=== PATIENT | male | born 1935 | race Caucasian/White ===

== ENCOUNTER → 2016-08-21 | Outpatient (CLI) | payer OTHER, BC ==
[2016-08-21 10:57] LABS: BASOPHILS # (AUTO) 0.01 10*3/UL; BASOPHILS % (AUTO) 0.2 % (0-1); EOSINOPHILS % (AUTO) 3.2 % (0-8); HEMATOCRIT 46.9 % (42.0-52.0); HEMOGLOBIN 15.8 g/dL (14.0-18.0); IMM GRAN % (AUTO) 0.2 % (0-5); IMM GRAN# (AUTO) 0.01 10*3/UL; LYMPHOCYTES # (AUTO) 1.08 10*3/uL; LYMPHOCYTES % (AUTO) 21.6 % (10-50); MEAN CORPUSCULAR HGB CONC 33.7 g/dL (33-37); MEAN PLATELET VOLUME 11.5 FL (7.4-12.2); MONOCYTES # (AUTO) 0.41 10*3/UL (0.3-0.8); MONOCYTES % (AUTO) 8.2 % (5-15); NEUTROPHILS # (AUTO) 3.33 10*3/UL; NEUTROPHILS % (AUTO) 66.6 % (50-80); RDW COEFFICIENT OF VARIATION 12.9 % (11.5-14.5); RED BLOOD COUNT 4.93 10^6/uL (4.70-6.10)
[2016-08-21 10:58] LABS: PLATELET MORPHOLOGY COMMENT NORMAL MORPHOLOGY (NORM)
[2016-08-21 11:04] LABS: BILIRUBIN,TOTAL 0.7 mg/dL (0.3-1.2); CALCIUM 9.2 mg/dL (8.7-10.7); LDL CHOLESTEROL,CALCULATED 29.4 mg/dL; POTASSIUM 4.9 meq/L (3.8-5.2)
[2016-08-21 11:07] LABS: HEMOGLOBIN A1C 6.21 % (4.2-6.0); MEAN BLOOD GLUCOSE (CALC) 120.793 mg/dL
[2016-08-21 11:10] LABS: CREATININE, URINE 150.2 MG/DL (15-500)
== END ==
LOC: MOB LAB 09:17
PROVIDERS: ATTEND Internal Medicine
DX: E11.9 Type 2 diabetes mellitus without complications (principal); E78.5 Hyperlipidemia, unspecified; I10 Essential (primary) hypertension; I25.10 Atherosclerotic heart disease of native coronary artery without angina pectoris
CPT/HCPCS: 36415; 80053; 80061; 82043; 82550; 83036; 85025

== ENCOUNTER → 2016-08-28 | Outpatient (CLI) | payer OTHER, BC | LOC: MMPC 11:11 | PROVIDERS: ATTEND Internal Medicine | DX: I71.4 Abdominal aortic aneurysm, without rupture (principal); E11.9 Type 2 diabetes mellitus without complications; I25.10 Atherosclerotic heart disease of native coronary artery without angina pectoris; E78.5 Hyperlipidemia, unspecified; I35.0 Nonrheumatic aortic (valve) stenosis; Z95.1 Presence of aortocoronary bypass graft | CPT/HCPCS: 99214; G0463 ==

== ENCOUNTER → 2016-08-29 | Outpatient (CLI) | payer OTHER, BC ==
--- NOTE | 2016-08-29 13:18 | EKG ---
[address] [place] [address] Measurements Intervals [place] Rate: 64 P: 62 MD: 214 QRS: -48 QRSD: 109 T: 52 QT: 378 QTc: 388 Interpretive Statements SINUS RHYTHM WITH SINUS ARRHYTHMIA WITH FIRST DEGREE AV BLOCK INCOMPLETE RIGHT BUNDLE BRANCH BLOCK LEFT ANTERIOR FASCICULAR BLOCK , BIFASICULAR BLOCK MINIMAL VOLTAGE CRITERIA FOR LVH, CONSIDER NORMAL VARIANT Compared to ECG 11/15/2015 12:08:51 First degree AV block now present Left anterior fascicular block now present Electronically Signed On 08-30-16 11:52:50 MST by Rio Andrade [email or web address]
== END ==
LOC: MOB EKG 13:03
PROVIDERS: ATTEND Specialist
DX: I25.10 Atherosclerotic heart disease of native coronary artery without angina pectoris (principal); I44.0 Atrioventricular block, first degree; I45.2 Bifascicular block
CPT/HCPCS: 93005; 93010; 99213

== ENCOUNTER → 2016-11-19 | Outpatient (CLI) | payer OTHER, BC ==
[2016-11-19 14:36] LABS: CREATININE, URINE 179.2 MG/DL (15-500)
== END ==
LOC: LAB 10:46
PROVIDERS: ATTEND Internal Medicine
DX: E11.9 Type 2 diabetes mellitus without complications (principal)
CPT/HCPCS: 82043

== ENCOUNTER → 2016-11-21 | Outpatient (CLI) | payer OTHER, BC ==
[2016-11-21 11:17] LABS: CALCIUM 9.1 mg/dL (8.7-10.7)
[2016-11-21 11:20] LABS: HEMOGLOBIN A1C 6.06 % (4.2-6.0)
[2016-11-21 12:36] LABS: BILIRUBIN,URINE NEGATIVE (NEG); CLARITY,URINE CLOUDY (CLEAR); COLOR,URINE YELLOW; GLUCOSE, URINE (UA) NEGATIVE (NEG); NITRATE,URINE NEGATIVE (NEG); OCCULT BLOOD,URINE LARGE (NEG); PH,URINE 5.5 (5.0-8.5); PROTEIN,URINE NEGATIVE (NEG); UROBILINOGEN,URINE 0.2 mg/dL (0.2)
[2016-11-21 12:42] LABS: RBC,URINE >100 /hpf; SQUAMOUS EPITHELIAL CELL,UR FEW; URINE SAMPLE TYPE VOIDED SPECIMEN
[2016-11-21 12:43] LABS: RENAL EPITHELIAL CELLS,URINE FEW
--- NOTE | 2016-11-21 14:02 | DI ---
CT ABD W/CN AND PELVIS W/CN,11/21/2016 10:36 AM: Clinical History: Aortic aneurysm Previous Exam: December 28, 2015 Findings: Multiple helically acquired CT images are obtained through the abdomen and pelvis following the intra venous administration of 75 cc of Isovue 300, and demonstrate mild diffuse fatty infiltration of the liver. The lung bases are clear. The heart is normal. A few coronary artery calcifications are seen. The gallbladder contains some hyperdense substance layering within the dependent portion of the gallb ladder neck. The spleen, pancreas and adrenals are unremarkable. The right kidney contains a simple 17 mm cyst. There is an infrarenal abdominal aortic aneurysm measuring 4.1 cm in AP dimension. The appendix is normal. The urinary bladder is unremarkable. Degenerative changes of the left hip are noted. 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 There is no free air nor free fluid. There is a stable fat-containing left inguinal hernia. There is no mesenteric or retroperitoneal lymphadenopathy. There are a few subcentimeter hypodensitie s within the left kidney which are too small to characterize. Impression: 1. 4.1 cm infrarenal abnormal aortic aneurysm unchanged from the prior exam. 2. Other findings stable as well.
== END ==
LOC: CT 10:23
PROVIDERS: ATTEND Internal Medicine
DX: E11.9 Type 2 diabetes mellitus without complications (principal); I71.4 Abdominal aortic aneurysm, without rupture; R30.0 Dysuria; R39.89 Other symptoms and signs involving the genitourinary system; R82.99 Other abnormal findings in urine
CPT/HCPCS: 36415; 74177; 80048; 81001; 83036; 87088

== ENCOUNTER → 2017-01-02 | Outpatient (CLI) | payer OTHER, BC | LOC: MMPC 10:00 | PROVIDERS: ATTEND Specialist | DX: I35.0 Nonrheumatic aortic (valve) stenosis (principal); Z95.1 Presence of aortocoronary bypass graft ==

== ENCOUNTER → 2017-01-04 | Outpatient (CLI) | payer OTHER, BC | LOC: MMPC 11:11 | PROVIDERS: ATTEND Internal Medicine | DX: E11.9 Type 2 diabetes mellitus without complications (principal); I25.10 Atherosclerotic heart disease of native coronary artery without angina pectoris; E78.5 Hyperlipidemia, unspecified | CPT/HCPCS: 99214; G0463 ==